=== PATIENT | female | born 1970 | race Caucasian/White ===

== ENCOUNTER 2018-04-27 16:31 | Emergency (ER) | payer MEDICAID ==
[2018-04-27] MEDS: AMOXICILLIN 500 MG CAP PO (18:57)
== END 2018-04-27 19:03 | disposition home or self-care (01) ==
LOC: FTE 16:31
DX: H66.42 Suppurative otitis media, unspecified, left ear (principal); I10 Essential (primary) hypertension; E11.9 Type 2 diabetes mellitus without complications
CPT/HCPCS: 99284; Z7502